=== PATIENT | female | born 1985 | race Caucasian/White ===

== ENCOUNTER 2017-08-05 09:19 | Emergency (ER) | payer SELFPAY ==
[2017-08-05] MEDS: ONDANSETRON PF 4 MG/2 ML VIAL. IV (10:15)
[2017-08-05 10:39] LABS: ADD MAN DIFF? NO
[2017-08-05] MEDS: IV NORMAL SALINE 1000ML BAG 1,000 ML IV (10:41)
[2017-08-05 10:42] LABS: BASO % 0 % (0-3); EOS # 0.1 x10^3/uL (0.0-0.7); EOS % 1 % (0-3); HEMATOCRIT 41.8 % (36.0-47.0); HEMOGLOBIN 14.5 g/dL (12.0-15.5); LYMPH # 2.1 x10^3/uL (1.0-4.8); LYMPH % 34 % (24-48); MEAN CORPUSCULAR HEMOGLOBIN 30 pg (25-35); MEAN CORPUSCULAR HGB CONC 35 g/dL (31-37); MEAN CORPUSCULAR VOLUME 88 fL (79-100); MONO # 0.3 x10^3/uL (0.0-1.1); MONO % 5 % (0-9); NEUT # 3.7 x10^3uL (1.8-7.7); NEUT % 60 % (31-73); PLATELET COUNT 187 x10^3/uL (140-400); RED BLOOD COUNT 4.75 x10^6/uL (3.50-5.40); RED CELL DISTRIBUTION WIDTH 13.2 % (11.5-14.5); WHITE BLOOD COUNT 6.2 x10^3/uL (4.0-11.0)
[2017-08-05 10:59] LABS: ANION GAP 14 (6-14); BLOOD UREA NITROGEN 17 mg/dL (7-20); BUN/CREATININE RATIO 24 (6-20); CALCIUM 8.9 mg/dL (8.5-10.1); CARBON DIOXIDE 20 mmol/L (21-32); CHLORIDE 105 mmol/L (98-107); CREATININE 0.7 mg/dL (0.6-1.0); GLUCOSE 112 mg/dL (70-99); POTASSIUM 3.9 mmol/L (3.5-5.1); SODIUM 139 mmol/L (136-145)
[2017-08-05 11:05] LABS: ALBUMIN/GLOBULIN RATIO 1.4 (1.0-1.7); ALK PHOS 61 U/L (46-116); ALT (SGPT) 35 U/L (14-59); AST (SGOT) 18 U/L (15-37); TOTAL BILIRUBIN 0.1 mg/dL (0.2-1.0); TOTAL PROTEIN 6.9 g/dL (6.4-8.2)
[2017-08-05 11:05] LABS: TROPONINI < 0.017 ng/mL (0.000-0.055)
== END 2017-08-05 12:30 | disposition home or self-care (01) ==
LOC: ER 09:19
DX: F41.9 Anxiety disorder, unspecified (principal); R07.89 Other chest pain; Z90.710 Acquired absence of both cervix and uterus
CPT/HCPCS: 36415; 80053; 84484; 85025; 93005; 96360; 99285-25; J7030